=== PATIENT | female | born 1985 | race Caucasian/White ===

== ENCOUNTER → 2016-11-06 13:17 | Outpatient (CLI) | payer MEDICARE ==
[2015-12-07 09:44] VITALS: BMI 40.5
[~2016-11-06 13:17] MED LIST: DILAUDID2 MG PO; ERRIN0.35 MG PO; HYDROCODONE-APA1 TAB PO; NORCO 10/325 TA1 TA1 PO; PHENERGAN25 M1 PO; PRENATAL COMPLE1 TAB PO; birth control PO
== END | disposition home or self-care (01) ==
LOC: D.MRI 13:17
DX: M23.611 Other spontaneous disruption of anterior cruciate ligament of right knee (principal)